=== PATIENT | female | born 1970 | race Caucasian/White ===

== ENCOUNTER 2017-01-22 03:04 | Emergency (ER) | payer SELFPAY ==
[2017-01-22] MEDS ORDERED: SILVER SULFADIAZINE 1% CREAM 25 GM TP ONE (06:43)
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
[2017-01-22 07:02] VITALS: BP 112/78
== END 2017-01-22 07:00 | disposition home or self-care (01) ==
LOC: ER 03:04
DX: T25.122A Burn of first degree of left foot, initial encounter (principal); T25.121A Burn of first degree of right foot, initial encounter; X12.XXXA Contact with other hot fluids, initial encounter; Y92.524 Gas station as the place of occurrence of the external cause; Z59.0 Homelessness
CPT/HCPCS: 99283

== ENCOUNTER 2017-01-22 21:22 | Emergency (ER) | payer SELFPAY ==
--- NOTE | 2017-01-22 22:16 | ER Document Report ---
ED General - General Chief Complaint: Dizziness Stated Complaint: DIZZY Time Seen by Provider: 01/22/17 22:08 Notes: Patient is a 46-year-old female that comes in once for chief complaint of feeling dizzy and lightheaded. She states that she gets this way when she does not have enough to eat, she states she had a fruit cup this morning and chips this afternoon but nothing else today. She states she is homeless and occasionally she does not make it to a long-term. She states that she has been told she was anemic from lack of nutrition and was transfused within the past year, she denies any vaginal or rectal bleeding, she denies any chest pain, she denies passing out, she denies fever, denies focal numbness or weakness. She denies any medications or known medical history other than anemia. TRAVEL OUTSIDE OF THE [place]S. IN LAST 30 DAYS: No - Related Data Allergies/Adverse Reactions: No Known Allergies Allergy (Verified 01/22/17 03:05) Past Medical History - General Information source: Patient - Social History Smoking Status: Never Smoker Frequency of alcohol use: None Drug Abuse: None Lives with: Family Family History: Reviewed & Not Pertinent - Medical History Medical History: Negative Renal/ Medical History: Denies: Hx Peritoneal Dialysis Surgical Hx: Negative - Immunizations Hx Diphtheria, Pertussis, Tetanus Vaccination: No Review of Systems - Review of Systems Constitutional: See HPI EENT: No symptoms reported Cardiovascular: No symptoms reported Respiratory: No symptoms reported Gastrointestinal: No symptoms reported Genitourinary: No symptoms reported Female Genitourinary: No symptoms reported Musculoskeletal: No symptoms reported Skin: No symptoms reported Hematologic/Lymphatic: No symptoms reported Neurological/Psychological: See HPI Physical Exam - Vital signs Vitals: Temp Pulse Resp BP Pulse Ox 99 F 81 16 112/63 98 01/22/17 21:27 01/22/17 21:27 01/22/17 21:27 01/22/17 21:27 01/22/17 21:27 Interpretation: Normal - General General appearance: Appears well, Alert In distress: None - Patient slightly unkempt in appearance, alert, smiling, well -appearing - HEENT Head: Normocephalic, Atraumatic Eyes: Normal Conjunctiva: Normal Extraocular movements intact: Yes Eyelashes: Normal Pupils: PERRL Sinus: Normal Nasal: Normal Mouth/Lips: Normal Mucous membranes: Normal Pharynx: Normal Neck: Normal - Respiratory Respiratory status: No respiratory distress Chest status: Nontender Breath sounds: Normal. No: Decreased air movement, Wheezing Chest palpation: Normal - Cardiovascular Rhythm: Regular. No: Tachycardia Heart sounds: Normal auscultation, S1 appreciated, S2 appreciated Murmur: No - Abdominal Inspection: Normal Distension: No distension Bowel sounds: Normal Tenderness: Nontender. No: Tender, Guarding Organomegaly: No organomegaly - Back Back: Normal, Nontender. No: Tender - Extremities General upper extremity: Normal inspection, Nontender, Normal strength, Normal temperature General lower extremity: Normal inspection, Nontender, Normal strength, Normal temperature - Neurological Neuro grossly intact: Yes Cognition: Normal Orientation: AAOx4 Tali Coma Scale Eye Opening: Spontaneous [place] Coma Scale Verbal: Oriented [place] Coma Scale Motor: Obeys Commands Tali Coma Scale Total: 15 Speech: Normal Cranial nerves: Normal Cerebellar coordination: Normal Motor strength normal: LUE, RUE, LLE, RLE Additional motor exam normals: Equal dismantler Sensory: Normal - Psychological Associated symptoms: Normal affect, Normal mood - Skin Skin Temperature: Warm Skin Moisture: Dry Skin Color: Normal Course - Re-evaluation Re-evalutation: After patient was then she reported her symptoms completely resolved. Patient with a normal neurological exam. Vital signs unremarkable. CBC shows microcytic anemia with hemoglobin of 8.2, patient denying any bleeding, above the level of treatment. Chemistry unremarkable. Discussed with patient, she states she is perfectly content with her situation, states she is a "no matter" and she will be moving on shortly from here, she states that she was in [place] before here, she states that she will try harder to improve her eating habits, she states she is ready to leave. Discussed return precautions: Patient states understanding and agreement. - Vital Signs Vital signs: Temp Pulse Resp BP Pulse Ox 99 F 81 23 H 110/63 99 01/22/17 21:27 01/22/17 21:27 01/22/17 23:01 01/22/17 23:01 01/22/17 23:01 - Laboratory Result Diagrams: 01/22/17 22:26 01/22/17 22:26 Laboratory results interpreted by me: 01/22/17 22:26 RBC 3.69 L Hgb 8.2 L Hct 26.7 L MCV 72 L MCH 22.3 L MCHC 30.9 L RDW 19.7 H Discharge - Discharge Clinical Impression: Nutrition deficiency due to insufficient food, Lightheadedness Condition: Stable Disposition: HOME, SELF-CARE Additional Instructions: You have anemia, probably from iron deficiency and nutritional deficiency, I recommend improving nutritional intake. Follow-up with primary care. Return the emergency department for any concerning symptoms including passing out, or shortness of breath, etc.
[2017-01-22 22:46] LABS: ABSOLUTE BASOPHILS # (AUTO) 0.1 10^3/uL (0.0-0.2); ABSOLUTE EOSINOPHILS # (AUTO) 0.1 10^3/uL (0.0-0.6); ABSOLUTE LYMPHOCYTES (AUTO) 1.2 10^3/uL (0.5-4.7); ABSOLUTE MONOCYTES (AUTO) 0.6 10^3/uL (0.1-1.4); ABSOLUTE NEUT (AUTO) 4.1 10^3/uL (1.7-8.2); BASOPHILS % (AUTO) 1.2 % (0-2); EOSINOPHILS % (AUTO) 2.3 % (0-6); HEMATOCRIT 26.7 % (36.0-47.0); HEMOGLOBIN 8.2 g/dL (12.0-15.5); HGB HCT DIFFERENCE -2.1; LYMPHOCYTES % (AUTO) 19.8 % (13-45); MEAN CORPUSCULAR HEMOGLOBIN 22.3 pg (27.0-33.4); MEAN CORPUSCULAR HGB CONC 30.9 g/dL (32.0-36.0); MEAN CORPUSCULAR VOLUME 72 fl (80-97); MONOCYTES % (AUTO) 9.3 % (3-13); RED BLOOD COUNT 3.69 10^6/uL (3.72-5.28); RED CELL DISTRIBUTION WIDTH 19.7 % (11.5-14.0); SEGMENTED NEUTROPHILS % (AUTO) 67.4 % (42-78); WHITE BLOOD COUNT 6.1 10^3/uL (4.0-10.5)
[2017-01-22 23:03] LABS: ANION GAP 12 (5-19); BLOOD UREA NITROGEN 16 mg/dL (7-20); CALCIUM 9.1 mg/dL (8.4-10.2); CARBON DIOXIDE 24 mmol/L (22-30); CHLORIDE 105 mmol/L (98-107); CREATININE RESULT 0.65 mg/dL (0.52-1.25); GLUCOSE 91 mg/dL (75-110); POTASSIUM 4.7 mmol/L (3.6-5.0); SODIUM 140.7 mmol/L (137-145)
[2017-01-22 23:15] VITALS: BP 110/63
--- NOTE | 2017-01-23 12:58 | EKG REPORT ---
SEVERITY:- NORMAL ECG - SINUS RHYTHM : Confirmed by: Marcos Kumar 23-Jan-2017 12:56:48
== END 2017-01-23 00:50 | disposition home or self-care (01) ==
LOC: ER 21:22
DX: T73.0XXA Starvation, initial encounter (principal); X58.XXXA Exposure to other specified factors, initial encounter; D50.9 Iron deficiency anemia, unspecified; R42 Dizziness and giddiness; Z59.0 Homelessness
CPT/HCPCS: 36415; 80048; 85025; 93005; 93010; 99284

== ENCOUNTER 2017-01-24 10:59 | Emergency (ER) | payer SELFPAY ==
--- NOTE | 2017-01-24 11:36 | EKG REPORT ---
SEVERITY:- NORMAL ECG - SINUS RHYTHM : Confirmed by: Marcos Kumar 24-Jan-2017 11:35:19
[2017-01-24 11:39] LABS: ABSOLUTE EOSINOPHILS # (AUTO) 0.1 10^3/uL (0.0-0.6); ABSOLUTE LYMPHOCYTES (AUTO) 1.2 10^3/uL (0.5-4.7); ABSOLUTE MONOCYTES (AUTO) 0.6 10^3/uL (0.1-1.4); ABSOLUTE NEUT (AUTO) 4.4 10^3/uL (1.7-8.2); BASOPHILS % (AUTO) 0.5 % (0-2); EOSINOPHILS % (AUTO) 1.5 % (0-6); HEMATOCRIT 27.5 % (36.0-47.0); HEMOGLOBIN 8.6 g/dL (12.0-15.5); HGB HCT DIFFERENCE -1.7; LYMPHOCYTES % (AUTO) 18.3 % (13-45); MEAN CORPUSCULAR HEMOGLOBIN 22.7 pg (27.0-33.4); MEAN CORPUSCULAR HGB CONC 31.3 g/dL (32.0-36.0); MEAN CORPUSCULAR VOLUME 72 fl (80-97); MONOCYTES % (AUTO) 9.7 % (3-13); RED CELL DISTRIBUTION WIDTH 19.6 % (11.5-14.0); WHITE BLOOD COUNT 6.3 10^3/uL (4.0-10.5)
[2017-01-24 11:43] LABS: APPEARANCE,URINE CLEAR; BILIRUBIN,URINE NEGATIVE (NEGATIVE); GLUCOSE, URINE NEGATIVE (NEGATIVE); KETONES,URINE NEGATIVE (NEGATIVE); LEUKOCYTE ESTERASE,URINE NEGATIVE (NEGATIVE); NITRITE,URINE NEGATIVE (NEGATIVE); PROTEIN,URINE NEGATIVE (NEGATIVE); URINE SPECIFIC GRAVITY 1.024; UROBILINOGEN,URINE NEGATIVE mg/dL (<2.0)
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
[2017-01-24 12:00] LABS: ALANINE AMINOTRANSFERASE 29 U/L (9-52); ALBUMIN 4.3 g/dL (3.5-5.0); ALKALINE PHOSPHATASE 68 U/L (38-126); ANION GAP 11 (5-19); ASPARTATE AMINO TRANSFERASE 24 U/L (14-36); BILIRUBIN,DIRECT 0.2 mg/dL (0.0-0.4); BILIRUBIN,TOTAL 0.4 mg/dL (0.2-1.3); BLOOD UREA NITROGEN 14 mg/dL (7-20); CALCIUM 9.3 mg/dL (8.4-10.2); CARBON DIOXIDE 22 mmol/L (22-30); CHLORIDE 104 mmol/L (98-107); CREATININE RESULT 0.66 mg/dL (0.52-1.25); GLUCOSE 82 mg/dL (75-110); POTASSIUM 4.5 mmol/L (3.6-5.0); SODIUM 137.2 mmol/L (137-145)
[2017-01-24 12:01] LABS: ALCOHOL < 10 mg/dL (NONE DETECTED)
[2017-01-24 12:04] LABS: URINE BARBITURATES SCREEN NEGATIVE; URINE METHADONE SCREEN NEGATIVE; URINE OPIATES LOW NEGATIVE; URINE PHENCYCLIDINE SCREEN NEGATIVE
--- NOTE | 2017-01-24 15:31 | ER Document Report ---
ED Psych Disorder / Suicide - General Information source: Patient, [facility] Records TRAVEL OUTSIDE OF THE [place] IN LAST 30 DAYS: No - HPI Onset: Just prior to arrival Onset was: Sudden Suicide Risk Factors: Lack of social support, No spouse Normal mood: Yes - smiling/euthymic Associated symptoms: Normal affect, Normal mood, Depressed Similar symptoms previously: No Recently seen / treated by doctor: Yes - twice 01/22 for different complaints <MARIZA REDMOND - Last Filed: 01/24/17 15:14> <AURE POE - Last Filed: 01/24/17 16:34> - General Chief Complaint: Suicidal Ideation Stated Complaint: SUICIDAL IDEATION Time Seen by Provider: 01/24/17 11:10 - HPI Notes: Patient is a 46 year old female who presents voluntarily seeking assistance with SI with plan to purchase pills at a local drug store to over dose. Patient states she has been homeless, by choice x7 years, and appreciates the nomadic lifestyle. She states she woke up this morning and felt in despair. She states she thinks the lifestyle and endurance required to sustain her desired nomadic lifestyle. Patient states she no longer feels this way and states she feels better, secondary to being cared for and the interaction with others. Patient states she does not want to . She states she plans to sleep on the streets tonight, as she often does, and will follow up tomorrow with a provider, as directed. Patient denies any prior MH histroy. She states she has never thought about harming herself. She additionally adds this thought was uncharacteristic of her. She states she has no family or support system in the area and states the only relative she maintains contact with is her mother, who is retired and living in [place], [place]. Patient has no other complaints and states she would like to be discharged. Patient denies SI/HI. Patient is A&O x4. Mood is calm, cooperative and euthymic. Affect is smiling, but odd. Patient now denies suicidal/homicidal ideations, intent, plan, or means. Patient denies A/V h; delusions not noted. Thought processes were organized. Conversational speech was WNL. Intellectual abilities were estimated within average range. Attention and focus were good. Insight, judgment , and impulse control were fair. Diagnosis: Deferred Patient is psychiatrically cleared for discharge. Patient states she is no longer having thoughts of harming herself. She states she has no prior history, but reports she is agreeable to follow up with a provider in the agency. Patient reports there is no one to call for collateral. She denies resources for the homeless correction and or the [facility] Wound Care Nurse. Discussed concerns with MD, who is in agreement with patient's odd affect and presentation ; however, given the patient's denial of SI/HI, she does not meet criteria for IVC per the [id number]. (MARIZA REDMOND) - Related Data Allergies/Adverse Reactions: No Known Allergies Allergy (Verified 01/24/17 11:06) Past Medical History - Social History Smoking Status: Unknown if Ever Smoked Family History: Reviewed & Not Pertinent Patient has suicidal ideation: Yes Patient has homicidal ideation: No Renal/ Medical History: Denies: Hx Peritoneal Dialysis Past Surgical History: Reports: Hx Cholecystectomy - Immunizations Hx Diphtheria, Pertussis, Tetanus Vaccination: No <MARIZA REDMOND - Last Filed: 01/24/17 15:14> Course - Laboratory Result Diagrams: 01/24/17 11:26 01/24/17 11:26 <MARIZA REDMOND - Last Filed: 01/24/17 15:14> - Laboratory Result Diagrams: 01/24/17 11:26 01/24/17 11:26 <AURE POE - Last Filed: 01/24/17 16:34> - Re-evaluation Re-evalutation: 01/24/17 16:34 Agree with assessment and plan (AURE POE) - Vital Signs Vital signs: Temp Pulse Resp BP Pulse Ox 98.6 F 90 17 126/69 H 98 01/24/17 11:01 01/24/17 11:01 01/24/17 11:07 01/24/17 11:01 01/24/17 11:01 - Laboratory Laboratory results interpreted by me: 01/24/17 01/24/17 01/24/17 11:26 11:26 11:26 Hgb 8.6 L Hct 27.5 L MCV 72 L MCH 22.7 L MCHC 31.3 L RDW 19.6 H Urine Blood SMALL H Salicylates < 1.0 L Acetaminophen < 10 L Discharge <MARIZA REDMOND - Last Filed: 01/24/17 15:14> <AURE POE - Last Filed: 01/24/17 16:34> - Discharge Clinical Impression: Suicidal ideations Depression Qualifiers: Depression Type: unspecified Qualified Code(s): F32.9 - Major depressive disorder, single episode, unspecified Condition: Stable Disposition: HOME, SELF-CARE Referrals: [facility] [Provider Group] - Follow up as needed [facility] [Provider Group] - Follow up as needed
[2017-01-24 16:34] VITALS: BP 107/56
== END 2017-01-24 16:33 | disposition home or self-care (01) ==
LOC: ER 10:59
DX: F32.9 Major depressive disorder, single episode, unspecified (principal); R45.851 Suicidal ideations; Z59.0 Homelessness
CPT/HCPCS: 36415; 80053; 80307; 81001; 85025; 93005; 93010; 99285